=== PATIENT | female | born 2000 | race Caucasian/White ===

== ENCOUNTER 2018-07-01 04:14 | Inpatient (IN) | payer BC ==
[2018-07-01 04:47] VITALS: BMI 36.4
[2018-07-01] MEDS ORDERED: Butorphanol Tartrate 1 MG/ML VIAL SLOW IVP PRN (05:25)
[2018-07-01] MEDS ORDERED: Meperidine HCl/PF 25 MG/ML VIAL IM/IV PRN (05:25)
[2018-07-01] MEDS ORDERED: HYDROcodone/Acetaminophen 5/325 mg Tablet PO PRN ×2 (05:25)
[2018-07-01] MEDS ORDERED: Lidocaine 1% (PF) 30 ML VIAL SC PRN (05:25)
[2018-07-01] MEDS ORDERED: Zolpidem Tartrate 5 MG TAB PO PRN (05:25)
[2018-07-01] MEDS ORDERED: Ondansetron PF 4 MG/2 ML Vial IVP PRN ×3 (05:25→14:00)
[2018-07-01] MEDS ORDERED: Promethazine HCl 25 MG/ML VIAL IM PRN ×2 (05:25→07:24)
[2018-07-01] MEDS ORDERED: Acetaminophen 500 MG TAB PO PRN (05:25)
[2018-07-01] MEDS ORDERED: NS / Oxytocin 40 units/1000ml 1,000 ML IV PRN (05:25)
[2018-07-01] MEDS ORDERED: Ibuprofen 800 MG TAB PO PRN (05:25)
[2018-07-01] MEDS ORDERED: Lactated Ringer's 1,000 ML IV SCH ×2 (05:30)
[2018-07-01] MEDS ORDERED: NS w/ Oxytocin 10 units 500 ML IV SCH (05:30)
--- NOTE | 2018-07-01 05:32 | PDOC.LDHP ---
Labor and Delivery H&P Chief complaint: contractions HPI: 17 yo WF presents c/o UCs q 5 min since 1 AM. Denies bleeding or SROM. Current gestational age (weeks): 39 Due date: 07/07/18 Dating criteria: last menstrual period Grav: 1 Para: 0 Current complications: other (h/o HSV, on Vasltrex, no recent outbreaks 1* GTT= 141- f/u BS in office all OK) Abnormal US findings: No Past Medical History: HSV- denies recent outbreaks anxiety Current medications: pre- vitamins, other (Valtrex as above) Previous surgical history: other (RSO for borderline ovarian tumor) Allergies/Adverse Reactions: Allergies Allergy/AdvReac Type Severity Reaction Status Date / Time No Known Allergies Allergy Unverified 07/01/18 04:37 Social history: none - Physical Exam Abnormal vital signs: 130/90's General: breathing through contractions Abdomen: gravid Extremeties: trace edema FHT: category 1 [place] contractions every: q 5 mins - Vaginal Exam cm dilated: 2 Effacement: 75% Station: -1 - OB Labs Blood type: A RH: positive Antibody Screen: negative HIV: negative RPR: negative HEPSAg: negative 1 hour GCT: positive GBS: negative Rubella: immune - Assessment L&D Assessment: term patient in labor - Plan Plan: admit to L&D, labor augmentation if indicated, anesthesia consult for pain management (Check labs, watch BP closely), other (Dr. Cheatham notified of admit)
[2018-07-01 06:17] LABS: Hemoglobin 11.9 g/dL (12.0-16.0); Mean Corpuscular HGB CONC 33.5 g/dL (32.0-36.0); Mean Corpuscular Hemoglobin 30.3 pg (25.0-35.0); Mean Corpuscular Volume 90.2 fL (78.0-98.0); Mean Platelet Volume 9.6 fL (7.4-10.4); Platelet Count 221 thou/uL (130-400); RBC Distribution Width 13.1 % (11.5-14.5); Red Blood Cell (RBC) Count 3.92 mill/uL (4.00-5.20); White Blood Cell (WBC) Count 20.7 thou/uL (4.8-10.8)
[2018-07-01 06:27] LABS: Bilirubin Negative (Negative); Blood, Urine Negative (Negative); Clarity CLEAR (Clear); Glucose, Urine (Dipstick) Negative (Negative); Leukocyte Moderate (Negative); Nitrite Negative (Negative); Protein, Urine (Dipstick) Negative (Neg-Trace); Specific Gravity, Urine 1.004 (1.002-1.036); Urobilinogen 0.2 mg/dL (0.2-1.0)
[2018-07-01 06:29] LABS: Bacteria/HPF Rare-Few HPF (None Seen); Hyaline Casts/LPF 0-3 HYALINE CAST LPF (0-3 Hyaline); RBC/HPF 0-3 HPF (0-3); Squamous Epithelial 0-3 HPF (0-3); WBC/HPF 21-50 HPF (0-3)
[2018-07-01 06:56] LABS: ALT (SGPT) 9 U/L (8-55); AST (SGOT) 15 U/L (5-34); Albumin 3.4 g/dL (3.5-5.0); Alkaline Phosphatase 199 U/L (40-150); Anion Gap 12 mmol/L (10-20); BUN (Urea Nitrogen) 6 mg/dL (7.0-18.7); Bilirubin, Total 0.3 mg/dL (0.2-1.2); Calc. Creatinine Clearance 191 mL/min (70-130); Calcium 9.9 mg/dL (7.8-10.44); Carbon Dioxide 17 mmol/L (22-29); Chloride 109 mmol/L (98-107); Estimated GFR-MDRD Greater than 90; Globulin 3.5 g/dL (2.4-3.5); Glucose 74 mg/dL (70-105); Potassium 4.1 mmol/L (3.5-5.1); Protein, Total 6.9 g/dL (6.0-8.3); Sodium 134 mmol/L (136-145)
[2018-07-01] MEDS ORDERED: Fentanyl 4 mcg/Bup 0.1% Cadd 100 ML ONE (06:57)
[2018-07-01 07:14] LABS: Hep B Surf Ag Non-Reactive S/CO (NonReactive)
[2018-07-01 07:16] LABS: Syphilis Antibody Nonreactive (Nonreactive); Syphilis Antibody Index 0.04 S/CO (<1.00 Non-Reactive)
[2018-07-01] MEDS ORDERED: ePHEDrine/0.9% NaCl/PF SYRINGE 50 mg/10 ml SLOW IVP PRN (07:24)
[2018-07-01] MEDS ORDERED: Eucerin (Mineral Oil/Petrolatum,White) 30 gm Jar TOP PRN (07:24)
[2018-07-01] MEDS ORDERED: Naloxone HCl 0.4 mg/ml Vial IVP PRN ×2 (07:24)
[2018-07-01] MEDS ORDERED: Lactated Ringer's 500 ML IV PRN (07:24)
[2018-07-01] MEDS ORDERED: Acetaminophen 325 MG TAB PO PRN (07:24)
[2018-07-01] MEDS ORDERED: diphenhydrAMINE 50 MG/ML VIAL IVP PRN (07:24)
[2018-07-01] MEDS ORDERED: Communication Order-Pharmacy FS SCH (07:30)
[2018-07-01] MEDS ORDERED: Fentanyl 4 mcg/Bupivacaine 0.1% Cassette 100 ML EPIDURAL SCH (07:30)
[2018-07-01] MEDS ORDERED: Ampicillin 2 GM in Sodium Chloride 0.9% 100 ML IVPB SCH (11:00)
[2018-07-01] MEDS ORDERED: Bupivacaine/Epinephrine 0.25% 30 ML VIAL ONE (11:11)
[2018-07-01] MEDS ORDERED: NS / Oxytocin 40 units/1000ml 1,000 ML ONE (12:15)
[2018-07-01] MEDS ORDERED: Adacel (T-DAP) 0.5 ML SYRINGE IM ONE (14:00)
[2018-07-01] MEDS ORDERED: diphenhydrAMINE 25 MG CAP PO PRN (14:00)
[2018-07-01] MEDS ORDERED: Bisacodyl 10 MG SUPP PR PRN (14:00)
[2018-07-01] MEDS ORDERED: Lanolin Ointment 7 GM TUBE TOP PRN (14:00)
[2018-07-01] MEDS ORDERED: Milk Of Magnesia 30 ML UDCUP PO PRN (14:00)
[2018-07-01] MEDS ORDERED: Preparation H Ointment 28 GM TUBE PR PRN (14:00)
[2018-07-01] MEDS ORDERED: NS / Oxytocin 40 units/1000ml 1,000 ML IV SCH (14:00)
[2018-07-01] MEDS ORDERED: Acetaminophen/Codeine 30-300mg Tablet PO PRN ×2 (14:00)
[2018-07-01] MEDS: Ibuprofen 800 MG TAB PO SCH ×2 (14:34→21:40)
[2018-07-01] MEDS: Ampicillin/Sulbactam 3 GM in Sodium Chloride 0.9% 100 ML IVPB SCH ×2 (15:03→21:41)
[2018-07-01 15:57] LABS: Band 12 % (5-11); Hemoglobin 11.4 g/dL (12.0-16.0); Lymphocytes 11 % (28-48); MDiff Complete? YES; Mean Corpuscular HGB CONC 32.2 g/dL (32.0-36.0); Mean Corpuscular Hemoglobin 28.9 pg (25.0-35.0); Mean Corpuscular Volume 89.9 fL (78.0-98.0); Mean Platelet Volume 8.5 fL (7.4-10.4); Monocytes 4 % (0-4); Myelocyte 1 % (0-0); Neutrophil 72 % (31-61); PLT Morphology Comment Appears Adequate; Platelet Count 291 thou/uL (130-400); RBC Distribution Width 13.2 % (11.5-14.5); Red Blood Cell (RBC) Count 3.94 mill/uL (4.00-5.20); White Blood Cell (WBC) Count 30.2 thou/uL (4.8-10.8)
[2018-07-01] MEDS: Docusate Calcium (SURFAK) 240 MG CAP PO SCH (21:40)
[2018-07-02] MEDS: Ibuprofen 800 MG TAB PO SCH ×3 (06:19→21:16)
[2018-07-02] MEDS: Ferrous Sulfate 325 MG TAB PO SCH ×2 (09:11→17:48)
[2018-07-02] MEDS: Prenatal Vitamin 1 TAB PO SCH (09:12)
[2018-07-02] MEDS: Docusate Calcium (SURFAK) 240 MG CAP PO SCH ×2 (09:12→21:17)
[2018-07-03] MEDS: Ibuprofen 800 MG TAB PO SCH (06:15)
[2018-07-03 07:57] VITALS: BP 120/67; TEMP 97.6
[2018-07-03] MEDS: Prenatal Vitamin 1 TAB PO SCH (09:39)
[2018-07-03] MEDS: Ferrous Sulfate 325 MG TAB PO SCH (09:39)
[2018-07-03] MEDS: Docusate Calcium (SURFAK) 240 MG CAP PO SCH (09:39)
== END 2018-07-03 12:25 | disposition home or self-care (01) | DRG 807 ==
LOC: L&D/OP 04:14 → L&D 06:08 → 3SW 14:54
PROVIDERS: ADMIT Obstetrics & Gynecology; ATTEND Obstetrics & Gynecology
PROC: 10E0XZZ Delivery of Products of Conception, External Approach (ICD-10-PCS; principal; 2018-07-01)
PROC: 10907ZC Drainage of Amniotic Fluid, Therapeutic from Products of Conception, Via Natural or Artificial Opening (ICD-10-PCS; 2018-07-01)
DX: O98.32 Other infections with a predominantly sexual mode of transmission complicating childbirth (principal); Z37.0 Single live birth; O69.81X0 Labor and delivery complicated by cord around neck, without compression, not applicable or unspecified; A60.00 Herpesviral infection of urogenital system, unspecified; O76 Abnormality in fetal heart rate and rhythm complicating labor and delivery; Z3A.39 39 weeks gestation of pregnancy; Z79.899 Other long term (current) drug therapy
CPT/HCPCS: 36415; 51702; 80053; 81003; 81015; 85027; 86780; 86850; 86900; 86901; 87340; 99285; J0290; J0295; J0595; J7050

== ENCOUNTER 2019-07-11 10:57 | Outpatient (CLI) | payer BC ==
--- NOTE | 2019-07-11 11:40 | RAD ---
XR Cervical Sp Com W/Obl Fl/Ex History: M [age] neck pain Comparison: None Findings: No acute fracture or malalignment. No significant listhesis on the neutral view. No signifi cant osseous neural foraminal narrowing. The open-mouth odontoid view is normal. Paraspinal soft tissues are unremarkable. Mild translation with flexion and extension at C3/C4. Impression: Mild translation at C3/C4 with flexion and extension.
== END 2019-07-11 10:58 | disposition home or self-care (01) ==
LOC: SCSRAD 10:57
PROVIDERS: ATTEND Family Medicine
DX: M54.2 Cervicalgia (principal)
CPT/HCPCS: 72052

== ENCOUNTER 2025-04-17 08:25 | Outpatient (CLI) | payer BC ==
[2025-04-17] MEDS ORDERED: Iopamidol 370 76% 100 ML VIAL ONE (12:59)
== END 2025-04-17 08:26 | disposition home or self-care (01) ==
LOC: CT 08:25
PROVIDERS: ATTEND Family Medicine
DX: R10.30 Lower abdominal pain, unspecified (principal)
CPT/HCPCS: 74177; Q9967